=== PATIENT | male | born 1975 | race Caucasian/White ===

== ENCOUNTER 2018-02-11 20:47 | Emergency (ER) | payer OTHER, MEDICAID ==
[~2018-02-11] VITALS: Ht 198.1 cm; Wt 181.4 kg
[2018-02-11 21:03] VITALS: BP 129/93
[2018-02-11] MEDS ORDERED: TRAMADOL 50 MG50 MG PO (21:03)
[2018-02-11] MEDS ORDERED: AMOXICILLIN 50500 MG PO (21:03)
[2018-02-11] MEDS ORDERED: LIPITOR10 MG PO (21:07)
== END 2018-02-11 21:12 | disposition home or self-care (01) ==
LOC: M.ERS 20:47
DX: K08.89 Other specified disorders of teeth and supporting structures (principal)